=== PATIENT | male | born 1950 ===

== ENCOUNTER 2018-04-25 12:00 | Inpatient (IN) | payer OTHER ==
[~2018-04-25] VITALS: Ht 172.7 cm; Wt 101.2 kg
[2018-04-25] MEDS ORDERED: ARICEPT10 MG PO (16:26)
[2018-04-25] MEDS ORDERED: AMLODIPINE PO (16:27)
[2018-04-25] MEDS ORDERED: GLIPIZIDE XL5 MG PO (16:27)
[2018-04-25] MEDS ORDERED: ZOCOR40 MG PO (16:27)
[2018-04-25] MEDS ORDERED: LOSARTAN-HCTZ1 EAC1 PO (16:28)
[2018-04-29] MEDS ORDERED: NORVASC5 MG PO (09:19)
== END 2018-05-10 10:54 | disposition home or self-care (01) | DRG 330 ==
LOC: O/R 04-29 05:55 → SURH 04-29 05:55 → SURG 04-29 07:00 → SURH 04-29 14:24 → O/R 04-29 17:23 → SURH 04-30 18:53
PROVIDERS: Colon & Rectal Surgery
PROC: 0DT80ZZ Resection of Small Intestine, Open Approach (ICD-10-PCS; 2018-04-29)
PROC: 07TC0ZZ Resection of Pelvis Lymphatic, Open Approach (ICD-10-PCS; 2018-04-29)
PROC: 0DBU0ZZ Excision of Omentum, Open Approach (ICD-10-PCS; 2018-04-29)
PROC: 0WQF0ZZ Repair Abdominal Wall, Open Approach (ICD-10-PCS; 2018-04-29)
PROC: 0DQ80ZZ Repair Small Intestine, Open Approach (ICD-10-PCS; 2018-04-29)
PROC: 0DN80ZZ Release Small Intestine, Open Approach (ICD-10-PCS; 2018-04-29)
PROC: 0DTE0ZZ Resection of Large Intestine, Open Approach (ICD-10-PCS; principal; 2018-04-29 07:00)
PROC: BW25YZZ Computerized Tomography (CT Scan) of Chest, Abdomen and Pelvis using Other Contrast (ICD-10-PCS; 2018-05-03)
DX: C18.3 Malignant neoplasm of hepatic flexure (principal); K43.0 Incisional hernia with obstruction, without gangrene; K91.71 Accidental puncture and laceration of a digestive system organ or structure during a digestive system procedure; K66.0 Peritoneal adhesions (postprocedural) (postinfection); Z78.1 Physical restraint status

== ENCOUNTER 2018-04-28 11:11 | Day surgery (SDC) | payer OTHER ==
[~2018-04-28 11:11] MED LIST: AMLODIPINE PO; ARICEPT10 MG PO; GLIPIZIDE XL5 MG PO; LOSARTAN-HCTZ1 EAC1 PO; ZOCOR40 MG PO
[2018-04-29] MEDS ORDERED: NORVASC5 MG PO (09:19)
== END 2018-04-28 15:52 | disposition home or self-care (01) ==
LOC: AMB-ENDOS 11:11
DX: C18.3 Malignant neoplasm of hepatic flexure (principal)

== ENCOUNTER 2019-05-29 05:45 | Day surgery (SDC) | payer OTHER ==
[~2019-05-29 05:45] MED LIST changes: +NORVASC5 MG PO
== END 2019-05-29 09:40 | disposition home or self-care (01) ==
LOC: AMB-ENDOS 05:45
DX: D12.3 Benign neoplasm of transverse colon (principal); K64.1 Second degree hemorrhoids